=== PATIENT | male | born 1990 | race Caucasian/White ===

== ENCOUNTER 2021-09-03 15:59 | Emergency (ER) | payer SELFPAY ==
[~2021-09-03] VITALS: Ht 157.5 cm; Wt 52.7 kg
[2021-09-03 16:07] VITALS: TEMP 98.2
[2021-09-03 17:05] VITALS: BP 139/81; PULSE 111
== END 2021-09-03 17:05 | disposition home or self-care (01) ==
LOC: COL.ER 15:59
DX: R07.81 Pleurodynia (principal); V49.40XA Driver injured in collision with unspecified motor vehicles in traffic accident, initial encounter